=== PATIENT | male | born 1990 | race Caucasian/White ===

== ENCOUNTER 2018-01-16 09:43 | Inpatient (IN) | payer BC ==
[2018-01-16] MEDS ORDERED: Lidocaine 1% (PF) 30 ML VIAL ONE (10:18)
[2018-01-16] MEDS ORDERED: Ondansetron PF 4 MG/2 ML Vial ONE (11:23)
[2018-01-16] MEDS ORDERED: Morphine 4 MG/ML VIAL ONE (11:23)
[2018-01-16] MEDS ORDERED: Piperacillin/Tazobactam 4.5 GM VIAL ONE (11:23)
[2018-01-16 11:25] LABS: #Eosinphils 0.1 thou/uL (0.0-0.7); #Lymphocytes 2.3 thou/uL (1.20-3.40); #Monocytes 1.2 thou/uL (0.11-0.59); #Neutrophils 8.7 thou/uL (1.40-6.50); %Basophils 0.4 % (0.0-1.0); %Eosinophils 0.5 % (0.0-10.0); %Lymphocytes 18.5 % (21.0-51.0); %Monocytes 9.8 % (0.0-10.0); %Neutrophils 70.8 % (42.0-75.0); Hemoglobin 15.8 g/dL (14.0-18.0); Mean Corpuscular HGB CONC 33.1 g/dL (32.0-36.0); Mean Corpuscular Hemoglobin 30.1 pg (27.0-31.0); Mean Platelet Volume 7.7 fL (7.4-10.4); Platelet Count 233 thou/uL (130-400); Red Blood Cell (RBC) Count 5.24 mill/uL (4.70-6.10); White Blood Cell (WBC) Count 12.2 thou/uL (4.8-10.8)
[2018-01-16] MEDS ORDERED: Vancomycin HCl 1.5 GM in Sodium Chloride 0.9% 250 ML 300 ML IVPB SCH (11:30)
[2018-01-16 11:40] LABS: ALT (SGPT) 19 U/L (8-55); AST (SGOT) 12 U/L (5-34); Albumin 4.1 g/dL (3.5-5.0); Alkaline Phosphatase 77 U/L (40-150); Anion Gap 9 mmol/L (10-20); BUN (Urea Nitrogen) 13 mg/dL (8.9-20.6); Bilirubin, Total 0.8 mg/dL (0.2-1.2); Calc. Creatinine Clearance 0 mL/min (70-130); Calcium 9.8 mg/dL (7.8-10.44); Carbon Dioxide 27 mmol/L (22-29); Chloride 105 mmol/L (98-107); Estimated GFR-MDRD Greater than 90; Glucose 101 mg/dL (70-105); Potassium 3.9 mmol/L (3.5-5.1); Protein, Total 7.1 g/dL (6.0-8.3); Sodium 137 mmol/L (136-145)
[2018-01-16] MEDS ORDERED: Acetaminophen 500 MG TAB ONE (13:02)
--- NOTE | 2018-01-16 13:19 | PDOC.FPRHP ---
- History of Present Illness Chief Complaint: spider bite History of Present Illness: Mr. Andres presents to the ED after 5 days of increasing swelling and pain in his R arm. Last saturday he was hunting and walking through a lot of webs with spiders. He started clindamycin 3 days ago without much improvement. He attempted to drain the wound last night, only expressing a small amount of purulent material. He reports decreased ROM in his elbow 2/2 pain. He denies fever, chills, SOB, decreased PO intake. In the past he spent 5 days in the hospital for an infected hematoma after trauma, unstable vital signs at that time. ED Course: CBC, CMP, LA, BCx/WCx, Vanc, Zosyn - Allergies/Adverse Reactions Allergies Allergy/AdvReac Type Severity Reaction Status Date / Time No Known Allergies Allergy Verified 01/16/18 14:19 - Home Medications Medication Instructions Recorded Confirmed Type No Known 01/16/18 01/16/18 History - History PMHx: none PSHx: orthopedic elbow hardware FHx: none Social: no TAD - Review of Systems General: denies: fever/chills, weight/appetite/sleep changes Eyes: denies: eye pain, vision changes ENT: denies: nasal congestion, rhinorrhea Respiratory: denies: congestion, shortness of breath Cardiovascular: denies: chest pain, palpitation, edema Gastrointestinal: denies: nausea, vomiting, diarrhea Genitourinary: denies: dysuria Skin: reports: lesions. denies: rashes, jaundice Musculoskeletal: reports: pain, tenderness, stiffness, swelling Neurological: denies: numbness, syncope - Vital signs BP: [138/82] HR: [73] RR: [16] Tmax: [97.6] Pox: [100]% on [RA] Wt: [104kg] - Physical Exam Constitutional: NAD HEENT: EOMI, grossly normal vision, grossly normal hearing Neck: supple Chest: no-tender to palpation, no lesions Heart: RRR, normal S1/S2, no murmurs/rubs/gallops, pulses present, no edema Lungs: CTAB, no respiratory distress, good air movement Abdomen: soft, non-tender, no masses/distention Musculoskeletal: normal structure, normal tone, other (decreased flexion/ extension in R elbow 2/2 pain) Neurological: no focal deficit, CN II-XII intact -Skin: erythema/edema on right forearm, borders marked with sharpie, neurovascular intact. pain with palpation swollen area Psychiatric: normal mood and affect FMR H&P: Results - Labs Result Diagrams: 01/16/18 11:02 01/16/18 11:02 Lab results: WBC 12.2 thou/uL (4.8-10.8) H 01/16/18 11:02 Hgb 15.8 g/dL (14.0-18.0) 01/16/18 11:02 Hct 47.7 % (42.0-52.0) 01/16/18 11:02 MCV 91.0 fL (78.0-98.0) 01/16/18 11:02 Plt Count 233 thou/uL (130-400) 01/16/18 11:02 Neutrophils % 70.8 % (42.0-75.0) 01/16/18 11:02 Sodium 137 mmol/L (136-145) 01/16/18 11:02 Potassium 3.9 mmol/L (3.5-5.1) 01/16/18 11:02 Chloride 105 mmol/L (98-107) 01/16/18 11:02 Carbon Dioxide 27 mmol/L (22-29) 01/16/18 11:02 BUN 13 mg/dL (8.9-20.6) 01/16/18 11:02 Creatinine 0.86 mg/dL (0.6-1.3) 01/16/18 11:02 Glucose 101 mg/dL (70-105) 01/16/18 11:02 Lactic Acid 1.4 mmol/L (0.5-2.2) 01/16/18 11:08 Calcium 9.8 mg/dL (7.8-10.44) 01/16/18 11:02 Total Bilirubin 0.8 mg/dL (0.2-1.2) 01/16/18 11:02 AST 12 U/L (5-34) 01/16/18 11:02 ALT 19 U/L (8-55) 01/16/18 11:02 Alkaline Phosphatase 77 U/L (40-150) 01/16/18 11:02 Serum Total Protein 7.1 g/dL (6.0-8.3) 01/16/18 11:02 Albumin 4.1 g/dL (3.5-5.0) 01/16/18 11:02 FMR H&P: A/P - Problem List (1) Sepsis Current Visit: Yes Status: Acute Code(s): A41.9 - SEPSIS, UNSPECIFIED ORGANISM (2) Cellulitis and abscess of upper arm and forearm Current Visit: Yes Status: Acute Code(s): [id number] - - Plan sepsis 2/2 skin abscess with Cellulitis - POA with pulse 102, elevated WBC - most likely considering history and symptoms - xray to evaluate for gaston/periosteal involvment - broad spectrum ABx, de-escalate when cultures result - encourage PO hydration - Motrin/tylenol for pain control, consider tramadol for breakthrough pain Code: full ppx: lovenox Disposition/LOS: treat with abx, monitor vs, possible DC tomorrow FMR H&P: Upper Level - Pertinent history 27 y/o M presents with skin redness. States he was probably bitten by a spider 5 days ago because he was hunting and saw spiders on his clothes. The area on his R forearm became red and he was given Clindamycin. The area did not get better and continued to worsen. Denies fever, but endorse pain around the elbow area. Of note, he did have elbow surgery with hardware on the affected side (in 2006) and complains his elbow is hurting in the area. His history includes sepsis 2/2 a lower leg abscess several years ago with a 5 day hospital stay. - Pertinent findings PE: SKIN: Significant edema and erythema on proximal R forearm. Tender to palpation. CARDIO/VASC: RRR, No MRG. Pulses intact. NEURO: moves all digits well. WBCs: 12.5 - Plan Date/Time: 01/16/18 1309 Jonathan Wharton, have evaluated this patient and agree with findings/plan as outlined by administration intern resident. Pertinent changes/additions are listed here. 1: Skin abscess with surrounding cellulitis. Vital signs are stable and he does meet SIRS criteria. Mild Leukocytosis and tachycardia. Is concerning as the erythema is overlying his joint that has titanium screws present. We marked the borders and he has been placed on IV broad spectrum abx and his abscess was drained in the ED as well as cultures taken. Plan to observe overnight for improvement and re-evaluate tomorrow. Pain relief and will monitor vital signs. Attending Addendum - Attending Addendum Date/Time: 01/16/181818 I personally evaluated the patient and discussed the management with Dr. Pearce and Clif. I agree with and repeated the History, Examination, Assessment and Plan documented above with any addition or exceptions noted below. Pt improved from ED. Has been having severe right arm pain, aching, pulsating, w/w movement and better with rest. Has not taking analgesics. Exam with edema, warmth, TTP, erythema. No crepitus. Quite a bit of edema over the elbow but unsure if this is where the abscess tracked. Erythema marked. No crepitus or pain out of proportion. Low suspicion for nec fasc at this time. Continue antibiotics.
[2018-01-16] MEDS ORDERED: Acetaminophen 325 MG TAB PO PRN (14:04)
[2018-01-16 14:19] VITALS: BMI 29.0
--- NOTE | 2018-01-16 15:34 | RAD ---
FOUR VIEWS RIGHT ELBOW: HISTORY: Evaluate for bony involvement. Infection. FINDINGS: There is a solitary screw along the distal medial right humerus at the level of the epicondyle. Ther e is soft tissue swelling. No erosive or destructive changes. No periosteal reaction. No perihardw are lucency. IMPRESSION: No radiographic evidence of complication with regards to the solitary screw. There is evidence of so ft tissue swelling, worrisome for cellulitis until proven otherwise. POS: HEATHER
[2018-01-16] MEDS: Piperacillin/Tazobactam 3.375 GM in Sodium Chloride 0.9% 100 ML IVPB SCH ×2 (18:02→23:37)
[2018-01-16] MEDS ORDERED: Acetaminophen/Codeine 30-300mg Tablet PO PRN ×3 (19:11→22:56)
[2018-01-16] MEDS ORDERED: Fentanyl 100 MCG/2 ML VIAL SLOW IVP PRN (19:13)
[2018-01-16] MEDS: HYDROcodone/Acetaminophen 5/325 mg Tablet PO PRN (19:39)
[2018-01-16] MEDS ORDERED: Lactated Ringer's 1,000 ML IV SCH (20:15)
[2018-01-16] MEDS: Lactated Ringer's 1,000 ML IV SCH (21:54)
[2018-01-17] MEDS: Vancomycin HCl 1.75 GM in Sodium Chloride 0.9% 500 ML IVPB SCH ×2 (04:02→16:15)
[2018-01-17 05:07] LABS: #Basophils 0.1 thou/uL (0.0-0.2); #Eosinphils 0.1 thou/uL (0.0-0.7); #Lymphocytes 1.7 thou/uL (1.20-3.40); #Monocytes 1.4 thou/uL (0.11-0.59); #Neutrophils 12.2 thou/uL (1.40-6.50); %Basophils 0.4 % (0.0-1.0); %Eosinophils 0.6 % (0.0-10.0); %Monocytes 9.2 % (0.0-10.0); %Neutrophils 78.8 % (42.0-75.0); Hemoglobin 14.5 g/dL (14.0-18.0); Mean Corpuscular HGB CONC 31.7 g/dL (32.0-36.0); Mean Corpuscular Hemoglobin 28.8 pg (27.0-31.0); Mean Corpuscular Volume 90.8 fL (78.0-98.0); Mean Platelet Volume 7.9 fL (7.4-10.4); Platelet Count 204 thou/uL (130-400); RBC Distribution Width 11.9 % (11.5-14.5); Red Blood Cell (RBC) Count 5.02 mill/uL (4.70-6.10); White Blood Cell (WBC) Count 15.5 thou/uL (4.8-10.8)
[2018-01-17] MEDS: HYDROcodone/Acetaminophen 5/325 mg Tablet PO PRN ×4 (05:57→20:16)
--- NOTE | 2018-01-17 06:29 | PDOC.FM ---
- Subjective Subjective: Mr. Andres is resting comfortably in bed, he reports well controlled pain. no new complaints, fevered overnight, fluids were started. - Objective Vital Signs & Weight: Vital Signs (12 hours) Temp Pulse Resp BP Pulse Ox 01/17/18 04:00 98.6 F 89 18 109/53 L 96 01/16/18 23:05 99.5 F 82 20 125/59 L 96 01/16/18 21:42 98.5 F 01/16/18 20:00 100 01/16/18 19:15 101.4 F H 98 24 H 118/60 100 Weight Weight 105.233 kg I&O: 01/15/18 01/16/18 01/17/18 06:59 06:59 06:59 Intake Total 2821 Output Total 810 Balance 2010 Result Diagrams: 01/17/18 04:33 01/16/18 11:02 Phys Exam - Physical Examination HEENT: moist MMs Respiratory: clear to auscultation bilateral Cardiovascular: RRR, no significant murmur, no rub Gastrointestinal: soft, no distention Musculoskeletal: pulses present erythema and edema over R elbow Neurological: non-focal, moves all 4 limbs Lymphatic: no nodes Psychiatric: normal affect Skin: no rash Dx/Plan (1) Sepsis Code(s): A41.9 - SEPSIS, UNSPECIFIED ORGANISM Status: Acute (2) Cellulitis and abscess of upper arm and forearm Code(s): [id number] - Status: Acute - Plan Plan: sepsis 2/2 skin abscess with Cellulitis - POA with pulse 102, elevated WBC - most likely considering history and symptoms - xray negative for gaston/periosteal involvment - broad spectrum ABx, de-escalate when cultures result - encourage PO hydration, 1 L fluid bolus, LR 125ml/hr - [place] for pain control Code: full ppx: lovenox dispo: continue to treat with broad spectrum abx, await culture results, move to inpt status
[2018-01-17] MEDS: Piperacillin/Tazobactam 3.375 GM in Sodium Chloride 0.9% 100 ML IVPB SCH ×4 (06:37→23:58)
[2018-01-17] MEDS: Lactated Ringer's 1,000 ML IV SCH ×3 (08:49→16:23)
--- NOTE | 2018-01-17 11:24 | PRG ---
DATE OF SERVICE: 01/17/2018 Mr. Andres is a pleasant 27-year-old white male who was admitted with a significant cellulitis of his right mid arm and elbow. He alleges that this may be due to an infected spider bite. In any fiona nt, when he presented to our ER he had 101.4 fever. His white count at that time was 12,200, but has now risen to 15,500. Of importance is the fact that this area of infection overlies some hardware p laced there in his right elbow 10 years ago. Even though he is not having any significant joint pain I feel an ortho input would be advisable. His wound culture is growing Staph aureus. We will avis nue the antibiotic coverage and obtain an opinion from Ortho regarding the hardware in his right elbo w. I have also suggested possibly using a argelia hook device to expedite the reduction in swelling.
[2018-01-17] MEDS: Enoxaparin Sodium 40 MG/0.4 ML SYRINGE SC SCH (13:54)
[2018-01-18] MEDS: HYDROcodone/Acetaminophen 5/325 mg Tablet PO PRN ×3 (01:45→20:50)
[2018-01-18 03:42] LABS: #Eosinphils 0.2 thou/uL (0.0-0.7); #Lymphocytes 1.6 thou/uL (1.20-3.40); #Monocytes 1.1 thou/uL (0.11-0.59); #Neutrophils 8.7 thou/uL (1.40-6.50); %Basophils 0.3 % (0.0-1.0); %Eosinophils 2.1 % (0.0-10.0); %Lymphocytes 13.8 % (21.0-51.0); %Monocytes 9.3 % (0.0-10.0); %Neutrophils 74.5 % (42.0-75.0); Hemoglobin 14.4 g/dL (14.0-18.0); Mean Corpuscular HGB CONC 33.4 g/dL (32.0-36.0); Mean Corpuscular Hemoglobin 30.3 pg (27.0-31.0); Mean Corpuscular Volume 90.7 fL (78.0-98.0); Mean Platelet Volume 7.7 fL (7.4-10.4); Platelet Count 196 thou/uL (130-400); RBC Distribution Width 11.7 % (11.5-14.5); Red Blood Cell (RBC) Count 4.74 mill/uL (4.70-6.10); White Blood Cell (WBC) Count 11.7 thou/uL (4.8-10.8)
[2018-01-18 04:00] LABS: ALT (SGPT) 17 U/L (8-55); AST (SGOT) 11 U/L (5-34); Albumin 3.4 g/dL (3.5-5.0); Alkaline Phosphatase 69 U/L (40-150); Anion Gap 8 mmol/L (10-20); BUN (Urea Nitrogen) 8 mg/dL (8.9-20.6); Bilirubin, Total 0.7 mg/dL (0.2-1.2); Calc. Creatinine Clearance 208 mL/min (70-130); Calcium 8.9 mg/dL (7.8-10.44); Carbon Dioxide 28 mmol/L (22-29); Chloride 106 mmol/L (98-107); Estimated GFR-MDRD Greater than 90; Globulin 2.9 g/dL (2.4-3.5); Glucose 104 mg/dL (70-105); Potassium 3.8 mmol/L (3.5-5.1); Protein, Total 6.3 g/dL (6.0-8.3); Sodium 138 mmol/L (136-145); Vancomycin, Trough 7.3 ug/mL
[2018-01-18] MEDS: Vancomycin HCl 1.75 GM in Sodium Chloride 0.9% 500 ML IVPB SCH ×3 (04:41→20:52)
[2018-01-18] MEDS: Fentanyl 100 MCG/2 ML VIAL SLOW IVP PRN ×3 (04:44→10:56)
[2018-01-18] MEDS: Lactated Ringer's 1,000 ML IV SCH ×3 (04:49→20:52)
[2018-01-18] MEDS: Piperacillin/Tazobactam 3.375 GM in Sodium Chloride 0.9% 100 ML IVPB SCH (05:26)
--- NOTE | 2018-01-18 06:53 | PDOC.FM ---
- Subjective Subjective: Mr. Andres is resting comfortably in bed, he reports mild pain in right arm. No new complaints, no fever overnight. Plan for I&D this morning with ortho. - Objective MAR Reviewed: Yes Vital Signs & Weight: Vital Signs (12 hours) Temp Pulse Resp BP Pulse Ox 01/18/18 04:01 98.3 F 75 18 101/63 97 01/18/18 00:00 98.1 F 88 16 107/63 96 01/17/18 20:00 99 F 89 16 117/84 97 Weight Weight 105.233 kg I&O: 01/16/18 01/17/18 01/18/18 06:59 06:59 06:59 Intake Total 2821 Output Total 810 200 Balance 2010 Result Diagrams: 01/18/18 03:19 01/18/18 03:19 <Estefany Portillo - Last Filed: 01/18/18 09:47> - Objective Vital Signs & Weight: Vital Signs (12 hours) Temp Pulse Resp BP Pulse Ox 01/18/18 11:16 73 18 151/76 H 96 01/18/18 07:18 98.1 F 75 18 105/65 96 01/18/18 04:01 98.3 F 75 18 101/63 97 Weight Admit Weight 105.233 kg Weight 105.233 kg I&O: 01/17/18 01/18/18 01/19/18 06:59 06:59 06:59 Intake Total 2821 Output Total 810 200 Balance 2010 Result Diagrams: 01/18/18 03:19 01/18/18 03:19 <Isael Quintero - Last Filed: 01/18/18 13:26> Phys Exam - Physical Examination Constitutional: NAD HEENT: moist MMs Neck: full ROM Respiratory: no wheezing, no rales, no rhonchi, clear to auscultation bilateral Cardiovascular: RRR Gastrointestinal: no distention Neurological: non-focal Psychiatric: normal affect, A&O x 3 Skin: no rash Deviation from normal: purulent drainage at wound site on right arm; erythema expanding <Estefany Portillo - Last Filed: 01/18/18 09:47> Dx/Plan (1) Cellulitis and abscess of upper arm and forearm Code(s): [id number] - Status: Acute (2) Sepsis Code(s): A41.9 - SEPSIS, UNSPECIFIED ORGANISM Status: Acute (3) Skin abscess Code(s): L02.91 - CUTANEOUS ABSCESS, UNSPECIFIED Status: Acute - Plan Plan: This is a 27 yo M who presented in sepsis 2/2 to cellulitis. Cellulitis 2/2 to abscess - VS wnl today, no fever overnight - X-ray negative for gaston/periosteal involvment - Bacterial pos for MRSA sensitive to vanc; will d/c zosyn; vanc subtherapeutic so will add levoquin qD - Ortho consulted: plan for I&D at 0800 today; will follow up - [place] for pain control Code: full ppx: lovenox dispo: continue to treat with abx, will follow up with ortho after I&D, appreciate recs <Estefany Portillo - Last Filed: 01/18/18 09:47> Attending Addendum - Attending Addendum Date/Time: 01/18/18 1326 I personally evaluated the patient and discussed the management with Dr. Portillo I agree with the History, Examination, Assessment and Plan documented above with any addition or exceptions noted below. Post op doing well will adjust pain med prn. <Isael Quintero - Last Filed: 01/18/18 13:26>
[2018-01-18] MEDS: Enoxaparin Sodium 40 MG/0.4 ML SYRINGE SC SCH (07:18)
[2018-01-18] MEDS ORDERED: Midazolam HCl 2 mg/2 ml Vial ONE (08:02)
[2018-01-18] MEDS ORDERED: Fentanyl 250 MCG/5 ML VIAL ONE (08:02)
[2018-01-18] MEDS ORDERED: Promethazine HCl 25 MG/ML VIAL ONE (08:03)
[2018-01-18] MEDS ORDERED: Meperidine HCl/PF 25 MG/ML VIAL ONE (09:27)
[2018-01-18] MEDS ORDERED: Morphine Sulfate 2 MG/ML SYRINGE SLOW IVP PRN (09:49)
[2018-01-18] MEDS ORDERED: Promethazine HCl 25 MG/ML VIAL SLOW IVP PRN (09:49)
[2018-01-18] MEDS ORDERED: Ondansetron HCl/PF 4 MG/2 ML Vial IVP PRN (09:49)
[2018-01-18] MEDS ORDERED: PACU-Morphine 4MG/ML VIAL SLOW IVP PRN (09:49)
[2018-01-18] MEDS ORDERED: Fentanyl 100 MCG/2 ML VIAL ONE (09:51)
[2018-01-18] MEDS ORDERED: Bisacodyl 5 MG TAB PO PRN (12:49)
[2018-01-18] MEDS ORDERED: Senokot 8.6 MG TAB PO PRN (12:49)
[2018-01-18] MEDS ORDERED: Dexamethasone 20 MG/5 ML VIAL ONE (15:32)
[2018-01-18] MEDS ORDERED: Ketorolac Tromethamine 30 MG/ML VIAL ONE (15:32)
[2018-01-18] MEDS ORDERED: PROPOFOL 200 MG/20 ML VIAL ONE (15:32)
[2018-01-18] MEDS ORDERED: Ondansetron PF 4 MG/2 ML Vial ONE (15:32)
[2018-01-18] MEDS ORDERED: Lidocaine 1% PF 5 ML VIAL ONE (15:32)
--- NOTE | 2018-01-18 15:36 | OP ---
DATE OF PROCEDURE: 01/18/2018 PREOPERATIVE DIAGNOSIS: Right forearm abscess POSTOPERATIVE DIAGNOSIS: Right forearm abscess PROCEDURE PERFORMED: Incision and drainage of forearm abscess. STAFF: Heri Thibodeaux M.D. ANESTHESIA: The patient received general intubation. ESTIMATED BLOOD LOSS: 30 mL. TOURNIQUET TIME: None. IMPLANTS: None. ANTIBIOTICS: Vancomycin scheduled Abx. HISTORY OF PRESENT ILLNESS: Mr. Stevenson is a 27-year-old male who last day what appeared to be an abscess, took Clindamycin. He has a history of previous Staph in his left leg. The patient had I&D done in the ER, which showed Staph aureus. The patient was evaluated yesterday, had eaten, he had some cellulitis progressing up to his arm. The patient still had tenderness this morning with some gross purulence at the site of the transverse incision of the forearm. I discussed with the patient, the risks and benefits, incision and drainage of his right forearm abscess to include pain, scar, bleeding, infection, damage to vital structures, decreased range of motion or strength, continued pain despite surgical intervention. He understood the risks and benefits of the procedure, understood he could potentially require more procedure and elected to proceed. PROCEDURE IN DETAIL: Time out was performed designating the patient's right upper extremity as the operative site on sight, consents, and markings. The patient had incision in a lightning shaped fashion and extended 4 centimeters proximally and distally, did not appear to go in the fascia. There was some gross purulence within the tissue, excised some of the skin as well as some of the subcutaneous tissue. I used my finger to digitally palpate in a circumferential manner from our incision to track anywhere proximally or distally, did not find any other gross purulence, so I then washed the wound with 3 liters of water and packed it with Kerlix. The patient will undergo continued IV antibiotics, await final cultures. We will go wound packings on the floor. JUDY
[2018-01-19 04:14] LABS: #Eosinphils 0.1 thou/uL (0.0-0.7); #Lymphocytes 1.2 thou/uL (1.20-3.40); #Monocytes 1.2 thou/uL (0.11-0.59); #Neutrophils 15.8 thou/uL (1.40-6.50); %Basophils 0.1 % (0.0-1.0); %Eosinophils 0.3 % (0.0-10.0); %Lymphocytes 6.5 % (21.0-51.0); %Monocytes 6.5 % (0.0-10.0); %Neutrophils 86.6 % (42.0-75.0); Hemoglobin 13.9 g/dL (14.0-18.0); Mean Corpuscular HGB CONC 33.2 g/dL (32.0-36.0); Mean Corpuscular Hemoglobin 30.3 pg (27.0-31.0); Mean Corpuscular Volume 91.3 fL (78.0-98.0); Mean Platelet Volume 7.6 fL (7.4-10.4); Platelet Count 244 thou/uL (130-400); RBC Distribution Width 11.7 % (11.5-14.5); White Blood Cell (WBC) Count 18.3 thou/uL (4.8-10.8)
[2018-01-19] MEDS: HYDROcodone/Acetaminophen 5/325 mg Tablet PO PRN ×3 (04:18→23:58)
[2018-01-19 04:28] LABS: ALT (SGPT) 21 U/L (8-55); AST (SGOT) 17 U/L (5-34); Albumin 3.7 g/dL (3.5-5.0); Alkaline Phosphatase 75 U/L (40-150); Anion Gap 9 mmol/L (10-20); BUN (Urea Nitrogen) 10 mg/dL (8.9-20.6); Bilirubin, Total 0.4 mg/dL (0.2-1.2); Calc. Creatinine Clearance 213 mL/min (70-130); Calcium 9.4 mg/dL (7.8-10.44); Carbon Dioxide 28 mmol/L (22-29); Chloride 105 mmol/L (98-107); Estimated GFR-MDRD Greater than 90; Globulin 3.3 g/dL (2.4-3.5); Glucose 131 mg/dL (70-105); Potassium 4.4 mmol/L (3.5-5.1); Sodium 138 mmol/L (136-145); Vancomycin, Trough 16.4 ug/mL
[2018-01-19] MEDS: Lactated Ringer's 1,000 ML IV SCH ×3 (05:23→20:38)
[2018-01-19] MEDS: Vancomycin HCl 1.75 GM in Sodium Chloride 0.9% 500 ML IVPB SCH ×3 (05:26→20:35)
--- NOTE | 2018-01-19 06:51 | PDOC.FM ---
- Subjective Subjective: Patient resting comfortably in bed. States pain has been less controlled overnight and this morning. No complaints or concerns. - Objective MAR Reviewed: Yes Vital Signs & Weight: Vital Signs (12 hours) Temp Pulse Resp BP Pulse Ox 01/18/18 20:00 98.1 F 88 18 133/78 98 01/18/18 19:40 96 Weight Admit Weight 105.233 kg Weight 105.233 kg I&O: 01/17/18 01/18/18 01/19/18 06:59 06:59 06:59 Intake Total 2821 1200 Output Total 810 200 Balance 2011 -200 1200 Result Diagrams: 01/19/18 03:33 01/19/18 03:33 <Estefany Portillo - Last Filed: 01/19/18 13:12> - Objective Vital Signs & Weight: Vital Signs (12 hours) Temp Pulse Resp BP Pulse Ox 01/19/18 08:00 98.1 F 76 18 124/73 98 Weight Admit Weight 105.233 kg Weight 105.233 kg I&O: 01/18/18 01/19/18 01/20/18 06:59 06:59 06:59 Intake Total 1200 Output Total 200 Balance -200 1200 Result Diagrams: 01/19/18 03:33 01/19/18 03:33 <Isael Quintero - Last Filed: 01/19/18 16:58> Phys Exam - Physical Examination Constitutional: NAD HEENT: moist MMs Neck: full ROM Respiratory: clear to auscultation bilateral Cardiovascular: RRR Gastrointestinal: soft, no distention Neurological: non-focal, moves all 4 limbs Psychiatric: normal affect, A&O x 3 Skin: no rash Deviation from normal: erythema, warmth right upper arm -: transverse incision on right upper arm packed <Estefany Portillo - Last Filed: 01/19/18 13:12> Dx/Plan (1) Cellulitis and abscess of upper arm and forearm Code(s): [id number] - Status: Acute (2) Sepsis Code(s): A41.9 - SEPSIS, UNSPECIFIED ORGANISM Status: Acute (3) Skin abscess Code(s): L02.91 - CUTANEOUS ABSCESS, UNSPECIFIED Status: Acute - Plan Plan: This is a 27 yo M who presented in sepsis 2/2 to cellulitis. Cellulitis 2/2 to abscess - VS wnl today, no fever overnight - X-ray negative for gaston/periosteal involvment - Bacterial pos for MRSA sensitive to vanc - vanc trough 16.4. Continue abx coverage with Vanc. D/C levaquin - Ortho consulted: s/p I&D; appreciate recs - [place]/morphine for pain control Code: full ppx: lovenox dispo: continue to treat with abx, follow up with ortho for recs; PO levoquin for d/c <Estefany Portillo - Last Filed: 01/19/18 13:12> Attending Addendum - Attending Addendum Date/Time: 01/19/18 6973 I personally evaluated the patient and discussed the management with Dr. Portillo I agree with the History, Examination, Assessment and Plan documented above with any addition or exceptions noted below. POD #1 some redness upper arm vancomycin just therapeutic rec continued IV antibiotic and observation. <Isael Quintero - Last Filed: 01/19/18 16:58>
[2018-01-19] MEDS: Enoxaparin Sodium 40 MG/0.4 ML SYRINGE SC SCH (07:40)
[2018-01-19] MEDS ORDERED: Morphine 4 MG/ML VIAL SLOW IVP SCH (08:30)
[2018-01-19] MEDS: Fentanyl 100 MCG/2 ML VIAL SLOW IVP PRN (09:39)
[2018-01-20 04:35] LABS: #Basophils 0.1 thou/uL (0.0-0.2); #Eosinphils 0.3 thou/uL (0.0-0.7); #Lymphocytes 2.2 thou/uL (1.20-3.40); #Monocytes 0.8 thou/uL (0.11-0.59); #Neutrophils 6.6 thou/uL (1.40-6.50); %Basophils 0.6 % (0.0-1.0); %Eosinophils 2.8 % (0.0-10.0); %Lymphocytes 22.3 % (21.0-51.0); %Monocytes 8.5 % (0.0-10.0); %Neutrophils 65.9 % (42.0-75.0); Hemoglobin 14.1 g/dL (14.0-18.0); Mean Corpuscular HGB CONC 33.7 g/dL (32.0-36.0); Mean Corpuscular Hemoglobin 30.9 pg (27.0-31.0); Mean Corpuscular Volume 91.5 fL (78.0-98.0); Mean Platelet Volume 7.3 fL (7.4-10.4); Platelet Count 278 thou/uL (130-400); RBC Distribution Width 11.9 % (11.5-14.5); Red Blood Cell (RBC) Count 4.56 mill/uL (4.70-6.10)
[2018-01-20 04:50] LABS: ALT (SGPT) 26 U/L (8-55); AST (SGOT) 17 U/L (5-34); Albumin 3.6 g/dL (3.5-5.0); Alkaline Phosphatase 74 U/L (40-150); Anion Gap 8 mmol/L (10-20); BUN (Urea Nitrogen) 14 mg/dL (8.9-20.6); Bilirubin, Total 0.2 mg/dL (0.2-1.2); Calc. Creatinine Clearance 213 mL/min (70-130); Calcium 9.5 mg/dL (7.8-10.44); Carbon Dioxide 28 mmol/L (22-29); Chloride 109 mmol/L (98-107); Estimated GFR-MDRD Greater than 90; Globulin 3.2 g/dL (2.4-3.5); Glucose 109 mg/dL (70-105); Potassium 3.9 mmol/L (3.5-5.1); Protein, Total 6.8 g/dL (6.0-8.3); Sodium 141 mmol/L (136-145)
[2018-01-20] MEDS: Vancomycin HCl 1.75 GM in Sodium Chloride 0.9% 500 ML IVPB SCH (05:04)
[2018-01-20] MEDS: Lactated Ringer's 1,000 ML IV SCH (05:19)
--- NOTE | 2018-01-20 05:59 | PDOC.FM ---
- Subjective Subjective: NAEO. Patient remained afebrile overnight and states pain has been well controlled. Denies any N/V, constipation, diarrhea. Says only has pain w/ dressing changes. Would like instruction regarding home wound care upon discharge. Otherwise, no concerns. - Objective Vital Signs & Weight: Vital Signs (12 hours) Temp Pulse Resp BP Pulse Ox 01/19/18 20:00 98 F 82 16 129/67 99 Weight Admit Weight 105.233 kg Weight 105.233 kg I&O: 01/18/18 01/19/18 01/20/18 06:59 06:59 06:59 Intake Total 1200 2220 Output Total 200 Balance -200 1200 2220 Result Diagrams: 01/20/18 03:41 01/20/18 03:41 <Dominique Pérez - Last Filed: 01/20/18 07:52> - Objective Vital Signs & Weight: Vital Signs (12 hours) Temp Pulse Resp BP Pulse Ox 01/20/18 07:03 97.6 F 68 16 106/69 97 Weight Admit Weight 105.233 kg Weight 105.233 kg I&O: 01/19/18 01/20/18 01/21/18 06:59 06:59 06:59 Intake Total 1200 2220 Balance 1200 2220 Result Diagrams: 01/20/18 03:41 01/20/18 03:41 <Ren Liu - Last Filed: 01/20/18 11:32> Phys Exam - Physical Examination Constitutional: NAD HEENT: moist MMs Neck: supple, full ROM Respiratory: no wheezing, no rales, no rhonchi, clear to auscultation bilateral Cardiovascular: RRR, no significant murmur Gastrointestinal: soft, non-tender, no distention, positive bowel sounds Musculoskeletal: no edema full ROM distal to I&D site Neurological: non-focal, normal sensation, moves all 4 limbs Psychiatric: normal affect, A&O x 3 Skin: normal turgor, cap refill <2 seconds Deviation from normal: erythema up into R axilla and all across anterior RUE; slightly warm to -: touch <Dominique Pérez - Last Filed: 01/20/18 07:52> Dx/Plan (1) Cellulitis and abscess of upper arm and forearm Code(s): [id number] - Status: Acute (2) Sepsis Code(s): A41.9 - SEPSIS, UNSPECIFIED ORGANISM Status: Resolved (3) Skin abscess Code(s): L02.91 - CUTANEOUS ABSCESS, UNSPECIFIED Status: Acute - Plan Plan: This is a 27 yo M who presented with sepsis 2/2 to cellulitis. Cellulitis 2/2 to abscess - Vitals WNLs today w/ no fever since 01/16/18. Patient is tolerating PO and voiding and stooling normally. - Day #1 s/p I&D w/ Ortho. WBC WNLs at 10 this AM. - Culture + for MRSA & sensitive to vanc. Will continue IV Vanc while in hospital & will most likely D/C on PO levaquin as other PO meds have a lower JAKE. - Will transition to PO only meds for pain control. - Will reconsult wound care requesting instructions for patient regarding wound care upon discharge. Code: full ppx: lovenox Dispo: Will likely d/c today on PO levoquin per ortho recs. <Dominique Pérez - Last Filed: 01/20/18 07:52> Attending Addendum - Attending Addendum Date/Time: 01/20/18 4881 I personally evaluated the patient and discussed the management with Dr. Pérez. I agree with the History, Examination, Assessment and Plan documented above with any addition or exceptions noted below. Patient reports feeling improved. He has been afebrile and WBC normalized. Ortho has cleared for discharge on double abx coverage for 14 days. Will discharge home on home wound care, Bactrim and Doxycycline based on microbial sensitivities. Follow up outpatient. <Ren Liu - Last Filed: 01/20/18 11:32>
[2018-01-20 07:06] VITALS: BP 106/69; TEMP 97.6
[2018-01-20] MEDS: Enoxaparin Sodium 40 MG/0.4 ML SYRINGE SC SCH (07:36)
--- NOTE | 2018-01-20 09:32 | CON ---
DATE OF CONSULTATION: 01/17/2018 CHIEF COMPLAINT: Right arm pain. 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 The patient states that on last Saturday he was hunting lot of spider webs, he noticed a small pustule the next day. The patient noted increased swelling and started on clindamycin approximately Saturday to Saturday. The patient had continued pain and afebrile, was brought in the hospital here secondary to increased swelling and erythema. The patient has history of hospital infection for his left lower extremity for which he underwent an I and D. PAST MEDICAL HISTORY: None. PAST SURGICAL HISTORY: 1. Orthopedic open reduction and internal fixation of right medial epicondyle fracture. 2. Incision and drainage in left leg secondary to abscess. ALLERGIES: No known drug allergies. MEDICATIONS: None. SOCIAL HISTORY: The patient is a nurse in [place]. Denies any drug, alcohol , or drug use. PHYSICAL EXAMINATION: VITAL SIGNS: Currently, 98.3, 88, 115/69. The patient did have a 101.7 temperature on admission on the . GENERAL: Alert and oriented male in no acute distress. EXTREMITIES: Focused exam of right lower extremity shows overt erythema of his right arm forearm, well healed surgical scar. There is a 5 x 4 cm area of raised erythema with some purulence which was packed with a transverse 1 cm laceration on the forearm. The patient has no gas or crepitus with pain. He has limited range of motion of elbow and hand. The patient is neurovascularly intact distally with 2+ pulses. LABORATORY AND X-RAY FINDINGS: His white count was 12, then 15. ESR was 7 on admission. CRP currently 16.72. The patient has a preliminary report of Staph aureus. X-rays of the elbow showed previous hardware without any gas. There is some soft tissue swelling. IMPRESSION: Right forearm Staphylococcus aureus abscess. ASSESSMENT AND PLAN: The patient will be monitored closely. He was made n.p.o. at midnight, on hold for OR tomorrow for possible incision and drainage. I will reassess him in the morning to see if he is improved. Plan will be for an incision and drainage of his right forearm with open packing followed by IV antibiotics. Discussed with the patient this plan. He understands to be n.p.o. at midnight. The patient has similar hospitalization for a leg abscess. [facility] CENTERMireya
[2018-01-20] MEDS ORDERED: Doxycycline 100 MG CAP PO SCH ×2 (11:30→21:00)
[2018-01-20] MEDS ORDERED: Fentanyl 100 MCG/2 ML VIAL SLOW IVP PRN (12:00)
[2018-01-20] MEDS ORDERED: Sulfameth/Trimethoprim DS 800-160mg TAB PO SCH ×2 (12:00→21:00)
--- NOTE | 2018-01-20 13:15 | CON ---
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 The patient has undergone wet to dry dressing changes as MRSA that was grown out from his elbow culture. The patient is susce ptible to Cipro, rifampin, Bactrim and vancomycin. The patient is currently undergoing wet to dry dr essing changes, comfortable in bed. PHYSICAL EXAMINATION: GENERAL: Alert and oriented male in no acute distress. EXTREMITIES: Right arm; no increasing erythema, improved skin induration and skin edges. No gross p urulence noted from the wound. IMPRESSION: Right forearm abscess, status post incision and drainage, postoperative day #2. ASSESSMENT AND PLAN: The patient will need double coverage for antibiotics for at least 2 weeks. He will see me back in my clinic in about 10-14 days for a wound check. The patient understands to ret urn to the clinic if he has any increased pain or problems. He will be discharged home per Family Practice.
--- NOTE | 2018-01-20 20:51 | DIS-2 ---
DATE OF ADMISSION: 01/16/2018 DATE OF DISCHARGE: 01/20/2018. RESIDENT: Dominique Pérez MD ADMITTING ATTENDING: Kosta Campos MD DISCHARGE ATTENDING: Ren Liu MD CONSULTATION: Orthopedic surgery, Heri Thibodeaux M.D. PROCEDURES: 1. Elbow x-ray on 01/16/2018, significant for no radiographic evidence of complication with regard to solitary screw. Evidence of soft tissue swelling worrisome for cellulitis until proven otherwise. No erosive or destructive changes and no periosteal reaction. 2. I and D of right forearm abscess. PRIMARY DIAGNOSES: 1. Cellulitis and abscess of upper arm and forearm. 2. Skin abscess. 3. Sepsis secondary to cellulitis, right upper arm and forearm. SECONDARY DIAGNOSIS: None. DISCHARGE MEDICATIONS: 1. Tylenol 650 mg p.o. every 4 hours as needed for pain. 2. Acetaminophen with codeine 1 tablet every 6 hours p.r.n. for pain, #10. 3. Dulcolax 5 mg p.o. daily p.r.n. for constipation. 4. Doxycycline 100 mg p.o. b.i.d. for 10 days. 5. Senokot 1 tab p.o. at bedtime p.r.n. for constipation. 6. Bactrim-DS 1 tab p.o. b.i.d. for 10 days. DISCONTINUED MEDICATIONS: None. HOSPITAL COURSE: The patient is a 27-year-old gentleman with no significant past medical history who presented to the Emergency Department with a chief complaint of a spider bite on his right upper forearm and elbow that he states occurred last Saturday while hunting. He was started on clindamycin 3 days prior to presentation, did not see much improvement, and attempted to drain the wound at home prior to presentation. However, he was only able to express a small amount of purulent material. On presentation to the emergency department, his vitals were noted to be within normal limits. The patient reported his pain to be 8/10 in severity in his right upper extremity. Routine lab work was obtained which was significant for an elevated white blood count of 12.2 as well as an elevated CRP of 16.72. Lab work was otherwise within normal limits. He was given 1 g of p.o. Tylenol and 8 mg of IV morphine for pain control. He was also given a dose of IV vancomycin and Zosyn as well as 4 mg of IV Zofran. Lastly, the patient was given a lidocaine injection for a bedside I&D that was performed in the emergency department. An incision was made over the area of fluctuance after numbing with lidocaine, which was explored for loculations, irrigated, and packed with sterile gauze. Approximately, 10 mL of pus was drained from the area. The patient tolerated the procedure well and was admitted to the inpatient medical team for IV antibiotic treatment as he had failed outpatient treatment with p.o. clindamycin. Before admitting the patient to the floor, an x-ray of the right elbow was obtained in order to rule out bony or periosteal involvement suggestive of osteomyelitis. This x-ray was negative for any evidence of bony involvement. The patient was therefore admitted to the floor and continued on broad spectrum IV antibiotics with plans to deescalate once abscess cultures resulted. Once on the floor, later that evening, the patient developed tachycardia with heart rate as high as 108 and fevered up to 101.4 degrees Fahrenheit. He was therefore determined to be septic secondary to his cellulitis and was given a 1 liter of fluid bolus and started on lactated Ringer's at 125 mL/hr. Also, of note, his white blood count had risen to 15,500 the following day, and, despite having an x-ray negative for any signs of osteomyelitis, Orthopedic Surgery was consulted in order to get their opinion of any necessary surgical intervention that may be required. Later that afternoon, Dr. Heri Thibodeaux came and evaluated the patient and recommended close monitoring with need for a possible second I and D the following morning. After being evaluated by Dr. Thibodeaux the next morning, the patient did not show any signs of significant improvement and was therefore taken back to the operating room for another I and D of a right elbow abscess. The patient tolerated the procedure well and was continued on IV vancomycin only the following day in anticipation of transitioning to p.o. antibiotics on Saturday with possible discharge home pending clearance by Orthopedic Surgery. By the day of discharge, the patient was tolerating p.o. and voiding and stooling normally. He also stated that his pain was well controlled on a p.o. pain regimen. Thus, after discussing discharge plans with Orthopedic Surgery, the patient was cleared for discharge home with instructions to follow up with Orthopedic Surgery within 2 weeks of discharge on two p.o. antibiotics for double coverage of his complicated infection. DISPOSITION: Stable. DISCHARGE INSTRUCTIONS: 1. Location: Home. 2. Diet: Regular diet. 3. Activity: As tolerated. 4. Followup: The patient was instructed to follow up with his primary care provider within 1 week of discharge and with Orthopedic Surgery, Dr. Heri Thibodeaux within 2 weeks of discharge. JUDY
== END 2018-01-20 13:56 | disposition home or self-care (01) | DRG 854 ==
LOC: ERS 09:43 → OBSVTOIN 14:03 → 2SW 14:03 → T4-A 01-17 08:33
PROVIDERS: ADMIT Family Medicine; ATTEND Family Medicine
PROC: 0J9G0ZZ Drainage of Right Lower Arm Subcutaneous Tissue and Fascia, Open Approach (ICD-10-PCS; principal; 2018-01-18)
DX: A41.9 Sepsis, unspecified organism (principal); L02.413 Cutaneous abscess of right upper limb; L03.113 Cellulitis of right upper limb
CPT/HCPCS: 10060; 36415; 80053; 80202; 83605; 84145; 85025; 85652; 86140; 87040; 87070; 87077; 87186; 87205; 96365; 96367; 96375; J1100; J1885; J2001; J2175; J2250; J2270; J2405; J2543; J2550; J2704; J3010; J3370; J7050

== ENCOUNTER 2022-02-16 12:29 | Emergency (ER) | payer BC ==
[2022-02-16 13:00] LABS: #Basophils 0.1 thou/uL (0.0-0.2); #Eosinphils 0.2 thou/uL (0.0-0.7); #Lymphocytes 1.6 thou/uL (1.20-3.40); #Monocytes 0.6 thou/uL (0.11-0.59); #Neutrophils 4.7 thou/uL (1.40-6.50); %Basophils 0.7 % (0.0-1.0); %Eosinophils 2.3 % (0.0-10.0); %Lymphocytes 22.8 % (21.0-51.0); %Monocytes 8.4 % (0.0-10.0); %Neutrophils 65.7 % (42.0-75.0); Hemoglobin 18.4 g/dL (14.0-18.0); Mean Corpuscular HGB CONC 32.4 g/dL (32.0-36.0); Mean Corpuscular Hemoglobin 30.4 pg (27.0-31.0); Mean Corpuscular Volume 93.7 fl (78.0-98.0); Mean Platelet Volume 7.4 fL (7.4-10.4); Platelet Count 209 10x3/uL (130-400); RBC Distribution Width 11.8 % (11.5-14.5); Red Blood Cell (RBC) Count 6.05 mill/uL (4.70-6.10); White Blood Cell (WBC) Count 7.1 10x3/uL (4.8-10.8)
[2022-02-16 13:25] LABS: ALT (SGPT) 20 U/L (8-55); AST (SGOT) 29 U/L (5-34); Albumin 4.6 g/dL (3.5-5.0); Alkaline Phosphatase 80 U/L (40-110); Anion Gap 15 mmol/L (10-20); BUN (Urea Nitrogen) 12 mg/dL (8.9-20.6); Bilirubin, Total 0.9 mg/dL (0.2-1.2); Calc. Creatinine Clearance 0 mL/min (70-130); Carbon Dioxide 25 mmol/L (22-29); Chloride 104 mmol/L (98-107); Estimated GFR 77; Globulin 3.5 g/dL (2.4-3.5); Glucose 94 mg/dL (70-105); Lipase 19 U/L (8-78); Potassium 4.7 mmol/L (3.5-5.1); Protein, Total 8.1 g/dL (6.0-8.3); Sodium 139 mmol/L (136-145)
[2022-02-16] MEDS ORDERED: Lidocaine Viscous Sol 2% 15 ml UD Cup ONE (15:58)
[2022-02-16] MEDS ORDERED: Mag-Al 1200 mg/1200 mg/30 ML UDCUP ONE (15:58)
== END 2022-02-16 16:13 | disposition home or self-care (01) ==
LOC: ERS 12:29
DX: K20.90 Esophagitis, unspecified without bleeding (principal)
CPT/HCPCS: 36415; 71045; 80053; 83690; 84484; 85025; 93005